=== PATIENT | female | born 1995 | race Caucasian/White ===

== ENCOUNTER 2021-09-17 22:54 | Emergency (ER) | payer OTHER ==
[2021-09-18 00:41] LABS: HEMOGLOBIN 11.1 gm/dl (12.3-15.3); RED BLOOD COUNT 3.95 M/UL (4.00-5.10); WHITE BLOOD COUNT 7.6 K/UL (4.5-11.0)
[2021-09-18 00:57] LABS: BUN/CREATININE RATIO 17 (0-10)
[2021-09-18] MEDS ORDERED: XARELTO15 MG PO (05:02)
[2021-09-18] MEDS ORDERED: OMNICEF 300 MG300 MG PO (05:02)
[2021-09-18] MEDS ORDERED: XARELTO20 MG PO (05:02)
[2021-09-18] MEDS ORDERED: HYDROCHLOROTH12.5 M1 PO (05:06)
== END 2021-09-18 07:23 | disposition home or self-care (01) ==
LOC: ER1 22:54
PROVIDERS: Physician Assistant
DX: I26.99 Other pulmonary embolism without acute cor pulmonale (principal); N39.0 Urinary tract infection, site not specified; I11.9 Hypertensive heart disease without heart failure
CPT/HCPCS: 71045; 80053; 80307; 81001; 82550; 82553; 83605; 83874; 83880; 84484; 84703; 85025; 85379; 85610; 85652; 85730; 86140; 87040; 87086; 93005; 99285; Q9967

== ENCOUNTER → 2021-09-19 | Outpatient (CLI) | payer OTHER ==
[~2021-09-19] MED LIST: HYDROCHLOROTH12.5 M1 PO; OMNICEF 300 MG300 MG PO; XARELTO15 MG PO; XARELTO20 MG PO
== END ==
LOC: CT 10:00
DX: R93.89 Abnormal findings on diagnostic imaging of other specified body structures (principal)
CPT/HCPCS: Q9967